=== PATIENT | female | born 1975 | race African-American/Black ===

== ENCOUNTER 2020-08-22 14:53 | Emergency (ER) | payer SELFPAY ==
[~2020-08-22] VITALS: Ht 167.6 cm; Wt 86.2 kg
== END 2020-08-22 15:24 | disposition home or self-care (01) ==
LOC: ER 14:57
DX: R50.9 Fever, unspecified (principal); R05 Cough; R19.7 Diarrhea, unspecified; F17.210 Nicotine dependence, cigarettes, uncomplicated
CPT/HCPCS: 99283